=== PATIENT | male | born 1990 | race Caucasian/White ===

== ENCOUNTER 2020-12-11 18:00 | Emergency (ER) | payer OTHER, SELFPAY ==
[2020-12-11 18:14] VITALS: BP 136/79; PULSE 67; RESP 18; TEMP 36.1; O2SAT 100
--- NOTE | 2020-12-11 18:53 | ED.URI ---
HPI - URI/Sore Throat General Chief Complaint: Upper Respiratory Infection Stated Complaint: sore throat Source: patient and RN notes reviewed Mode of arrival: ambulatory History of Present Illness HPI Narrative: This is a 30-year-old male who presented to urgent care with complaints of sore throat, sneezing, headache, coughing and congestion. According to patient 6 months ago he tested positive for Covid. He notes that his symptoms just started today and are concerned about given his family once again. The patient denies SOB, CP, palpitation, extremity numbness, lightheadedness, dizziness, constipation, diarrhea, chills, or fever. Ordered a Covid PCR MD elicited complaint: cough, sore throat and nasal congestion Related Data Home Medications Medication Instructions Recorded Confirmed No Home Medications 12/11/20 12/11/20 Allergies Allergy/AdvReac Type Severity Reaction Status Date / Time No Known Allergies Allergy Verified 12/11/20 18:21 Review of Systems Review of Systems: A 14 organ system Review of Systems was performed and pertinent positives included in the HPI, otherwise remaining ROS is negative. [facility] Family History Family History (Updated 12/11/20 @ 18:56 by MICHAEL BlancasP-C) Other Family history non-contributory Exam Narrative: GENERAL: This is a well-nourished, well-developed patient, in no apparent distress. HEAD: normocephalic, atraumatic. EYES: PERRL. Sclera clear/white. Vision is grossly intact. EARS: External ears normal, auditory canals clear and without drainage, TMs normal without perforation. Hearing grossly intact. NOSE: External nose normal with no obvious nasal discharge, nares without redness, no rhinorrhea. THROAT: Mucous membranes moist, posterior pharynx clear. NECK: Neck supple, non-tender without lymphadenopathy, masses or thyromegaly. CARDIOVASCULAR: Regular rate and rhythm without murmurs, gallops, or rubs. RESPIRATORY: Clear to auscultation. Breath sounds equal bilaterally. No wheezes, rales, or rhonchi. GASTROINTESTINAL: Abdomen soft, non-tender, nondistended. Bowel sounds are active. No hepato-splenomegaly, or palpable masses. No guarding. SKIN: warm, intact with no suspicious lesions or rash, good texture and turgor. NEURO: awake, alert, and oriented to person, place and time. There were no obvious focal neurologic abnormalities. Steady gait EXTREMITIES: Normal range of motion. No edema. No calf tenderness. Negative Homans sign bilaterally. BACK: Nontender without deformity or crepitance. No flank tenderness. Course Course Emergency Course: Patient given an order for Covid PCR Vital Signs Vital signs: Vital Signs Temperature 97.0 F L 12/11/20 18:14 Pulse Rate 67 12/11/20 18:14 Respiratory Rate 18 12/11/20 18:14 Blood Pressure 136/79 12/11/20 18:14 Pulse Oximetry 100 12/11/20 18:14 Temperature 97.0 F L 12/11/20 18:14 Pulse Rate 67 12/11/20 18:14 Respiratory Rate 18 12/11/20 18:14 Blood Pressure 136/79 12/11/20 18:14 Pulse Oximetry 100 12/11/20 18:14 MDM - URI/Sore Throat MDM Narrative Medical decision making narrative: Given order for Covid PCR Differential Diagnosis Differential diagnosis: Likely upper respiratory infection, viral infection, bronchitis and pharyngitis Discharge Plan Discharge Clinical Impression: COVID-19 ruled out by laboratory testing Patient Disposition: Home, Self-Care Condition: Stable Instructions: Antibiotic Form, COVID-19 (Coronavirus Disease 2019) (ED) Additional Instructions: COVID-19 DISCHARGE The following recommendations have been made by the CDC and local Health Departments, regarding COVID-19: ?Those individuals with mild cases of COVID-19 can generally be discontinued from isolation, 10 days AFTER the onset of symptoms AND the resolution of fever for 24hrs (without the use of fever-reducing medications) ?Those individuals who were asymptomatic, and tested positive, are
== END 2020-12-11 18:35 | disposition home or self-care (01) ==
PROVIDERS: Emergency Provider Nurse Practitioner
DX: J02.9 Acute pharyngitis, unspecified (principal); R51.9 Headache, unspecified; R05 Cough; R09.81 Nasal congestion; Z20.828 Contact with and (suspected) exposure to other viral communicable diseases
CPT/HCPCS: 99211; G0463

== ENCOUNTER 2023-11-19 16:03 | Emergency (ER) | payer OTHER, SELFPAY ==
--- NOTE | ~2023-11-19 | CT_ITS ---
EXAMINATION: CT abdomen pelvis w con DATE: 11/19/2023 21:00 INDICATION: Left abdominal pain. TECHNIQUE: Computed tomography (CT) of the abdomen and pelvis was performed with 100 mL Omnipaque 350 intravenous contrast. Automated exposure control and iterative reconstruction technique were employe d. The dose-length product was 1370.06 mGy-cm. COMPARISON: None. FINDINGS: The visualized portions of the lung bases demonstrate minimal atelectasis. No pleural effus ion. The heart size is normal. No pericardial effusion. The liver, gallbladder, spleen, pancreas, and left adrenal gland are normal. There is a 2.5 cm mass in right adrenal gland measuring soft tissue a ttenuation. Right kidney is normal. There are cysts in left kidney measuring up to 10 mm. There are n o dilated loops of bowel. The appendix is normal. There are no pathologically enlarged lymph nodes. T here is no free intraperitoneal fluid. There is an old fracture of left 11th rib. There is mild thora cic and lumbar spondylosis. IMPRESSION: 1. 2.5 cm right adrenal mass. In the absence of known malignancy, this finding is likely an adenoma. Reviewed, dictated and finalized at location E.
--- NOTE | ~2023-11-19 | XR_ITS ---
EXAMINATION: XR chest 1V portable DATE: 11/19/2023 19:45 INDICATION: Left upper quadrant abdominal pain. Cough. TECHNIQUE: A single frontal view of the chest was obtained. COMPARISON: None. FINDINGS: There is no pneumonia, pleural effusion, or pneumothorax. The heart size is normal. IMPRESSION: 1. No acute cardiopulmonary disease. Reviewed, dictated and finalized at location E.
[2023-11-19 17:49] VITALS: BP 129/66; PULSE 85; TEMP 36.9; O2SAT 97
[2023-11-19] MEDS: MAG HYDROX/AL HYDROX/SIMETH 30 ML UDC PO (19:48)
[2023-11-19] MEDS: FAMOTIDINE 20 MG TABLET PO (19:49)
[2023-11-19 19:58] VITALS: BP 172/91; PULSE 87; RESP 13; O2SAT 97
[2023-11-19 20:01] LABS: Basophils Percent Auto 0.5 % (0.2-1.2); Eosinophils Absolute Auto 0.2 K/mm3 (0-0.3); Eosinophils Percent Auto 2.4 % (0-4.4); Hematocrit 33.4 % (42.0-52.0); Immature Granulocyte Absolute 0.02 K/mm3 (0.00-0.031); Immature Granulocyte Percent A 0.3 % (0-0.5); Lymphocytes Absolute Auto 3.08 K/mm3 (0.9-3.2); Lymphocytes Percent Auto 38.7 % (18.3-44.2); Mean Corpuscular HGB Conc 32.9 g/dl (32-36); Mean Corpuscular Hemoglobin 33.7 pg (26-34); Mean Corpuscular Volume 102.5 fl (80-100); Mean Platelet Volume 9.9 fl (7.4-10.4); Monocytes Absolute Auto 0.7 K/mm3 (0.1-0.6); Monocytes Percent Auto 8.3 % (2.6-8.5); Neutrophils Percent Auto 49.8 % (45.5-73.1); Platelet Count Result 302 k/mm3 (150-375); Red Blood Count 3.26 M/mm3 (4.6-6.20); Red Cell Distribution Width 15.5 % (11.5-14.5)
[2023-11-19 20:11] LABS: Alanine Aminotransferase 26 U/L (6-50); Albumin Level 4.5 g/dL (3.5-5.1); Alkaline Phosphatase 74 U/L (38-126); Anion Gap 11 mmol/L (4-12); Aspartate Amino Transferase 27 U/L (17-59); Bilirubin,Total 0.6 mg/dL (0.2-1.3); Blood Urea Nitrogen 14 mg/dL (9-20); Calcium 8.6 mg/dL (8.4-10.2); Carbon Dioxide 26 mmol/L (22-30); Chloride 102 mmol/L (98-107); Estimated CRCL calculation 124 ml/min; Estimated Glomerular Filt Rate > 60; Glucose 92 mg/dL (65-110); Potassium 4.1 mmol/L (3.4-5.0); Sodium 139 mmol/L (137-145)
[2023-11-19 21:33] LABS: Lipase 80 U/L (23-300)
[2023-11-19 22:32] VITALS: BP 164/84; PULSE 84; RESP 13; O2SAT 100
--- NOTE | 2023-11-20 01:29 | ED.ABDPAIN ---
HPI - Abdominal Pain General Chief Complaint: Abdominal Pain Stated Complaint: abd pain Time Seen by Provider: 11/19/23 19:28 History of Present Illness HPI narrative: The patient reports that he has had left upper quadrant abdominal pain for 2 years at this time with increased bloating especially after he eats. Has been seen by doctor for this in the past and they have tried homeopathic vitamins without much improvement, he was supposed to have follow-up to a analytics intern but they still have not scheduled endoscopy. He was at [facility] earlier when he coughed and pain got worse. Often feels like there is acid coming up his throat Related Data Allergies Allergy/AdvReac Type Severity Reaction Status Date / Time No Known Allergies Allergy Verified 12/11/20 18:21 Review of Systems Review of Systems: All systems reviewed & are unremarkable except as noted in HPI and below PMFSH Family History Family History (Updated 12/11/20 @ 18:56 by OCTAVIO Blancas) Other Family history non-contributory Exam Narrative: EXAMINATION OF ORGAN SYSTEMS/BODY AREAS: Constitutional: Vital signs per nursing GENERAL:[No acute distress, non-toxic appearing.] HEAD: Normal with no signs of head trauma. EYES: EOMI, conjunctiva normal ENT: Hearing grossly intact LUNGS: Nonlabored breathing. HEART: [Regular rate and rhythm] ABD: [Soft], [very minimally tender to palpation] left upper quadrant EXT: Normal range of motion SKIN: [No rashes or lesions.] NEURO: [Alert and oriented x 3. No gross focal sensory or strength deficits.] PSYCH: Normal affect Course Vital Signs Vital signs: Vital Signs Temperature 98.4 F 11/19/23 17:49 Pulse Rate 85 11/19/23 17:49 Blood Pressure 129/66 11/19/23 17:49 Pulse Oximetry 97 11/19/23 17:49 Temperature 98.4 F 11/19/23 17:49 Pulse Rate 84 11/19/23 22:32 Respiratory Rate 13 11/19/23 22:32 Blood Pressure 164/84 H 11/19/23 22:32 Pulse Oximetry 100 11/19/23 22:32 MDM - Abdominal Pain MDM Narrative Medical decision making narrative: Electronic medical record was reviewed. Patient presented to the ED with complaint of [abdominal pain left upper quadrant]. Vitals [were within acceptable limits]. Physical exam revealed very well-appearing patient with very minimal tenderness to palpation to the left upper quadrant. Based on the patient's history and physical exam, my differential includes but is not limited to [gastritis, peptic ulcer, pancreatitis]. [IV access was established by nursing staff. Patient was given Maalox, famotidine]. CBC, BMP, lipase, LFTs, bilirubin and alk phos were obtained. Labs were pertinent for labs within acceptable. [Decision was made to obtain a CT-abdomen to evaluate for acute abdominal process. CT-abdomen per radiology interpretation is unremarkable for acute intra-abdominal process, no signs of hydronephrosis, cholecystitis, appendicitis.] He does have an adenoma which he is already aware of. On reevaluation, the patient states that they are feeling much better. There were no witnessed episodes of vomiting in the emergency department. They are not complaining of any new abdominal pain. Repeat examination did not show any significant guarding or rebound. No new tenderness. At this time I do not feel there is any further emergent treatment to be provided. The patient was given strict return precautions, if they are to develop any worsening abdominal pain, vomiting, or blood in the vomit they are to return to the emergency department immediately. Patient verbally acknowledges understanding these directions. [The patient was informed of the above diagnostic test findings.] No further workup is necessary at this time. They will be discharged home [with prescriptions]. They were advised to follow-up with GI in 2 days. The patient feels that this is appropriate medical decision making and verbalizes an understanding of the discharge instructions. Lad[place]
== END 2023-11-19 22:32 | disposition home or self-care (01) ==
PROVIDERS: Emergency Provider Emergency Medicine; PCP Family Medicine
DX: R10.12 Left upper quadrant pain (principal); E27.8 Other specified disorders of adrenal gland
CPT/HCPCS: 36415; 71045; 74177; 80053; 83690; 85025; 99284; A9270; Q9967